=== PATIENT | female | born 2000 | race African-American/Black ===

== ENCOUNTER 2019-07-02 12:07 | Inpatient (IN) | payer MEDICAID, OTHER ==
[~2019-07-02] VITALS: Ht 172.7 cm; Wt 57.2 kg
[2019-07-02] MEDS ORDERED: ACETAMINOPHEN 325MG TABLET PO STA (13:00)
[2019-07-02] MEDS ORDERED: SODIUM CHLORIDE 0.9% 1,000 ML IV ONE (13:00)
[2019-07-02 14:01] LABS: BASOPHILS % 0.4 % (0.0-2.0); EOSINOPHILS % 0.3 % (0.0-5.0); HEMATOCRIT. 33.3 % (36.0-48.0); HEMOGLOBIN. 10.7 g/dL (12.0-16.0); LYMPHOCYTES % 15.7 % (20.0-50.0); MEAN CORPUSCULAR HEMOGLOBIN 24.3 pg (28.0-32.0); MEAN PLATELET VOLUME 8.7 fl (7.4-10.4); MONOCYTES % 7.6 % (2.0-8.0); PLATELET 199 x1000/uL (130-400); RED BLOOD CELL COUNT 4.39 mill/uL (4.2-5.4); RED CELL DISTRIBUTION WIDTH 18.1 % (11.6-14.6)
[2019-07-02 14:04] LABS: CHLORIDE 107 mEq/L (98-107)
[2019-07-02 14:07] LABS: HCG SCREEN NEGATIVE
[2019-07-02 14:08] LABS: ETHANOL BLOOD < 10 mg/dL
[2019-07-02 15:25] LABS: CLARITY URINE CLEAR (CLEAR); COLOR URINE YELLOW (YELLOW); KETONES URINE NEGATIVE (NEGATIVE); LEUKOCYTE ESTERASE URINE NEGATIVE (NEGATIVE); NITRITE URINE NEGATIVE (NEGATIVE); OCCULT BLOOD URINE NEGATIVE (NEGATIVE); PROTEIN URINE NEGATIVE (NEGATIVE); UROBILINOGEN URINE 0.2 E.U./dL (0.2-1.0)
[2019-07-02 15:37] LABS: *AMPHETAMINES SCREEN URINE NEGATIVE (NEGATIVE); *BARBITURATES SCREEN URINE NEGATIVE (NEGATIVE); *BENZODIAZEPINES SCREEN URINE NEGATIVE (NEGATIVE); *COCAINE SCREEN URINE NEGATIVE (NEGATIVE)
[2019-07-02 15:38] LABS: CANNABINOID URINE SCREEN NEGATIVE (NEGATIVE); METHADONE URINE SCREEN NEGATIVE (NEGATIVE); OPIATES URINE SCREEN NEGATIVE (NEGATIVE); PHENCYCLIDINE URINE SCREEN NEGATIVE (NEGATIVE)
[2019-07-02] MEDS ORDERED: NITROGLYCERIN 0.4MG TABLET SL SL PRN (16:30)
[2019-07-02] MEDS ORDERED: LORAZEPAM 0.5MG TABLET PO PRN (16:30)
[2019-07-02] MEDS ORDERED: GUAIFENESIN 200MG/10ML SUGAR FREE UDC PO PRN (16:30)
[2019-07-02] MEDS ORDERED: DOCUSATE SODIUM 100MG CAPSULE PO PRN (16:30)
[2019-07-02] MEDS ORDERED: ONDANSETRON HCL 4MG/2ML INJ IV PRN (16:30)
[2019-07-02] MEDS ORDERED: MAGNESIUM/ALUMINUM HYDROXIDE/SIMETHICONE 30ML UDC PO PRN (16:30)
[2019-07-02] MEDS ORDERED: CLONIDINE 0.1MG TABLET PO PRN (16:30)
[2019-07-02] MEDS ORDERED: IPRATROPIUM/ALBUTEROL 0.5-3(2.5)MG/3ML NEB NEB PRN (16:30)
[2019-07-02] MEDS ORDERED: ZOLPIDEM TARTRATE 5MG TABLET PO PRN (16:30)
[2019-07-02 19:11] LABS: FOLIC ACID (FOLATE) SERUM 19.3 ng/mL (>5.38)
[2019-07-02] MEDS: ACETAMINOPHEN 650MG/20.3ML UDC PEG PRN (20:50)
[2019-07-02 22:19] VITALS: BP 104/65
[2019-07-02 23:46] LABS: CREATINE KINASE 74 IU/L (26-192)
[2019-07-02 23:47] LABS: CREATINE KINASE MB FRACTION < 1.0 ng/mL (0.5-3.6)
[2019-07-02] MEDS: FAMOTIDINE 20MG TABLET PO SCH (23:49)
[2019-07-03] VITALS: BP 105/62
[2019-07-03 04:00] VITALS: BP 99/61
[2019-07-03 08:00] VITALS: BP 106/67
[2019-07-03] MEDS: FERROUS SULFATE 300MG/5ML UDC PO SCH ×3 (08:12→17:22)
[2019-07-03] MEDS: ASPIRIN 325MG EC TABLET PO SCH (08:12)
[2019-07-03] MEDS: FAMOTIDINE 20MG TABLET PO SCH ×2 (08:12→20:07)
[2019-07-03] MEDS: ACETAMINOPHEN 650MG/20.3ML UDC PEG PRN (11:15)
[2019-07-03 12:00] VITALS: BP 102/65
[2019-07-03 12:08] LABS: CREATINE KINASE 69 IU/L (26-192)
[2019-07-03 12:09] LABS: CREATINE KINASE MB FRACTION < 1.0 ng/mL (0.5-3.6)
[2019-07-03] MEDS ORDERED: MAGNESIUM 1 G PREMIX 100 ML IV SCH (15:00)
[2019-07-03 16:00] VITALS: BP 116/66
[2019-07-03 20:00] VITALS: BP_SYST 108; BP_SYST 94; BP_SYST 97; BP_DIAS 57; BP_DIAS 59; BP_DIAS 69
[2019-07-03] MEDS: KETOROLAC 15MG/ML VIAL IV PRN (22:27)
[2019-07-04] VITALS: BP 98/53
[2019-07-04 04:00] VITALS: BP 98/57
[2019-07-04 07:08] LABS: BASOPHILS % 0.3 % (0.0-2.0); EOSINOPHILS % 1.1 % (0.0-5.0); HEMATOCRIT. 34.7 % (36.0-48.0); HEMOGLOBIN. 11.1 g/dL (12.0-16.0); LYMPHOCYTES % 27.9 % (20.0-50.0); MEAN CORPUSCULAR HEMOGLOBIN 24.3 pg (28.0-32.0); MEAN CORPUSCULAR VOLUME 76.3 fL (81.0-99.0); MEAN PLATELET VOLUME 9.4 fl (7.4-10.4); MONOCYTES % 9.8 % (2.0-8.0); NEUTROPHILS % 60.9 % (40.0-76.0); PLATELET 192 x1000/uL (130-400); RED BLOOD CELL COUNT 4.55 mill/uL (4.2-5.4); RED CELL DISTRIBUTION WIDTH 17.9 % (11.6-14.6)
[2019-07-04 07:14] LABS: CHLORIDE 106 mEq/L (98-107)
[2019-07-04 08:10] VITALS: BP 99/61
[2019-07-04] MEDS: FAMOTIDINE 20MG TABLET PO SCH (09:06)
[2019-07-04] MEDS: FERROUS SULFATE 300MG/5ML UDC PO SCH ×3 (09:06→17:25)
[2019-07-04] MEDS: ASPIRIN 325MG EC TABLET PO SCH (09:06)
[2019-07-04 10:25] LABS: UCG SCREEN NEGATIVE
[2019-07-04 12:00] VITALS: BP 100/56
[2019-07-04 16:00] VITALS: BP 111/59
[2019-07-04] MEDS: KETOROLAC 15MG/ML VIAL IV PRN (17:28)
[2019-07-04 17:49] VITALS: BP 111/59
== END 2019-07-04 18:30 | disposition short-term general hospital (02) | DRG 201 ==
LOC: ER 12:07 → 5WST 15:24 → ENRESERV 21:05
PROVIDERS: ADMIT Internal Medicine; ATTEND Internal Medicine
DX: I45.6 Pre-excitation syndrome (principal); E83.51 Hypocalcemia; R55 Syncope and collapse; D50.9 Iron deficiency anemia, unspecified
CPT/HCPCS: 36415; 71045; 80061; 80305; 80320; 81003; 81025; 82550; 82553; 82607; 82746; 83036; 83540; 83550; 83735; 84443; 84484; 84703; 85379; 93005; 93306; 93970; 96360; 99285; J1885; J3475; J7030; G0480